=== PATIENT | female | born 1950 | race Two or more races ===

== ENCOUNTER 2024-07-28 19:27 | Inpatient (IN) | payer MEDICARE, OTHER ==
[~2024-07-28] VITALS: Ht 157.5 cm; Wt 52.2 kg
[2024-07-28] MEDS ORDERED: CLON-418 PO (19:42)
[2024-07-28] MEDS ORDERED: LORA0.5T48 PO (19:42)
[2024-07-28] MEDS ORDERED: LEVO50TA8 PO (19:42)
[2024-07-28] MEDS ORDERED: PRIM50TA27 PO (19:42)
[2024-07-28] MEDS ORDERED: ATOR80TA PO (19:42)
[2024-07-28] MEDS ORDERED: ONDA4TAB5 PO (19:42)
[2024-07-28] MEDS ORDERED: OLAN5TAB70 PO ×2 (19:42)
[2024-07-28] MEDS ORDERED: SULF1TAB48 PO (19:42)
[2024-07-28] MEDS ORDERED: OLANZAPINE 5 MG TABLET ONE (20:36)
[2024-07-28] MEDS ORDERED: LORAZEPAM 1 MG TABLET ONE (20:36)
[2024-07-28] MEDS: LORAZEPAM 0.5 MG TABLET PO ONE (20:38)
[2024-07-28] MEDS: OLANZAPINE 5 MG TABLET PO ONE (20:38)
[2024-07-28] MEDS ORDERED: QUETIAPINE FUMARATE 25 MG TABLET ONE (21:20)
[2024-07-28] MEDS: QUETIAPINE FUMARATE 25 MG TABLET PO ONE (21:21)
[2024-07-28] MEDS ORDERED: LORAZEPAM 0.5 MG TABLET PO PRN (22:15)
[2024-07-28] MEDS ORDERED: MAG HYDROX/AL HYDROX/SIMETH 30 ML LIQUID UDC PO PRN (22:15)
[2024-07-28] MEDS ORDERED: TEMAZEPAM 7.5 MG CAPSULE PO PRN (22:15)
[2024-07-28] MEDS ORDERED: MAGNESIUM HYDROXIDE 30 ML LIQUID UDC PO PRN (22:15)
[2024-07-28 22:30] VITALS: BP 114/53; TEMP 98.1; O2SAT 92
[2024-07-29 08:02] VITALS: BP 128/61; TEMP 98.3; O2SAT 96
[2024-07-29] MEDS: LEVOTHYROXINE SODIUM 50 MCG TABLET PO SCH ×2 (09:00→09:30)
[2024-07-29] MEDS ORDERED: OLAN5TAB PO (09:16)
[2024-07-29] MEDS ORDERED: ACET325T53 PO (09:21)
[2024-07-29] MEDS: PRIMIDONE 50 MG TABLET PO SCH (11:15)
[2024-07-29] MEDS: DIVALPROEX 125 MG TABLET.DR PO SCH (13:45)
[2024-07-29 16:44] VITALS: BP 122/68; TEMP 98.1; O2SAT 98
[2024-07-29 20:00] VITALS: BP 138/64; TEMP 98.8; O2SAT 93
[2024-07-29] MEDS: QUETIAPINE FUMARATE 25 MG TABLET PO SCH (20:51)
[2024-07-29] MEDS: ATORVASTATIN 40 MG TABLET PO SCH (20:51)
[2024-07-30 08:02] VITALS: BP 129/59; TEMP 98.2; O2SAT 96
[2024-07-30] MEDS: ENSURE ENLIVE (VAN) 240 ML LIQUID PO SCH (09:00)
[2024-07-30 14:34] LABS: THYROID STIMULATING HORMONE 2.957 mIU/mL (0.358-3.740)
[2024-07-30 16:53] VITALS: BP 134/65; TEMP 97.5; O2SAT 97
[2024-07-30 20:00] VITALS: BP 148/65; TEMP 98.5; O2SAT 98
[2024-07-30] MEDS: QUETIAPINE FUMARATE 25 MG TABLET PO SCH (21:11)
[2024-07-31 08:02] VITALS: BP 145/54; TEMP 98.5; O2SAT 96
[2024-07-31 16:30] VITALS: BP 148/69; TEMP 97.9; O2SAT 96
[2024-07-31 21:57] VITALS: BP 172/80; TEMP 98.8; O2SAT 96
[2024-07-31] MEDS: LOSARTAN POTASSIUM 50 MG TABLET PO SCH (22:45)
[2024-07-31 23:45] VITALS: BP 146/78
[2024-08-01 07:30] VITALS: BP 153/64; TEMP 98.7; O2SAT 94
[2024-08-01 16:30] VITALS: BP 143/55; TEMP 99.4; O2SAT 95
[2024-08-01 19:52] VITALS: BP 182/81; TEMP 97.8; O2SAT 95
[2024-08-01 21:30] VITALS: BP 142/78
[2024-08-01] MEDS: METOPROLOL TARTRATE 25 MG TABLET PO SCH (22:44)
[2024-08-02] MEDS: TEMAZEPAM 7.5 MG CAPSULE PO PRN (00:49)
[2024-08-02 07:42] VITALS: BP 150/63; TEMP 98; O2SAT 98
[2024-08-02 15:06] VITALS: BP 117/65; TEMP 98; O2SAT 94
[2024-08-02 20:00] VITALS: BP 142/69; TEMP 98.9; O2SAT 96
[2024-08-03 07:49] LABS: BASOPHILS % (AUTO) 0.4 % (0.0-2.0); HEMATOCRIT 42.7 % (31.2-41.9); HEMOGLOBIN 13.9 g/dL (10.9-14.3); LYMPHOCYTES # (AUTO) 1.3 K/uL (0.8-4.8); LYMPHOCYTES % (AUTO) 14.7 % (20.5-51.5); MEAN CORPUSCULAR HEMOGLOBIN 27.6 uug (24.7-32.8); MEAN CORPUSCULAR HGB CONC 33 g/dL (32.3-35.6); MEAN CORPUSCULAR VOLUME 84.7 fL (75.5-95.3); MONOCYTES # (AUTO) 0.5 K/uL (0.1-1.30); MONOCYTES % (AUTO) 5.5 % (0.0-11.0); NEUTROPHILS # (AUTO) 6.8 K/uL (1.8-8.9); NEUTROPHILS % (AUTO) 79.4 % (38.5-71.5); PLATELET COUNT (AUTO) 269 K/uL (179-408); RED BLOOD CELL COUNT(AUTO) 5.04 MIL/uL (3.63-4.92); RED CELL DISTRIBUTION WIDTH 13.6 % (12.3-17.7); WHITE BLOOD COUNT (AUTO) 8.6 K/uL (3.8-11.8)
[2024-08-03 07:54] VITALS: BP 146/49; TEMP 98.2; O2SAT 96
[2024-08-03 07:54] LABS: DIFFERENTIAL COMMENT 1
[2024-08-03 08:03] LABS: ALANINE AMINOTRANSFERASE 21 U/L (14-59); ALBUMIN 3.3 g/dL (3.4-5.0); ALKALINE PHOSPHATASE 115 U/L (50-136); ASPARTATE AMINOTRANSFERASE 19 U/L (15-37); BILIRUBIN,TOTAL 0.3 mg/dL (0.2-1.0); CALCIUM 9.3 mg/dL (8.5-10.1); CARBON DIOXIDE 27 mmol/L (21-32); CHLORIDE 99 mmol/L (98-107); CREATININE 0.7 mg/dL (0.6-1.3); GLUCOSE 119 mg/dL (74-106); POTASSIUM 3.9 mmol/L (3.5-5.1); SODIUM SERUM 135 mmol/L (136-145); TOTAL PROTEIN, SERUM 6.9 g/dL (6.4-8.2); UREA NITROGEN, BLOOD 19 mg/dL (7-18); VALPROIC ACID 31 ug/mL (50-100)
[2024-08-03] MEDS: ACETAMINOPHEN 325 MG TABLET PO PRN (15:01)
[2024-08-03 15:23] VITALS: BP 193/80; TEMP 98.2; O2SAT 96
[2024-08-03] MEDS: METOPROLOL TARTRATE 25 MG TABLET PO STA (15:23)
[2024-08-03 16:27] VITALS: BP 147/76; TEMP 97.5; O2SAT 98
[2024-08-03 20:00] VITALS: BP 147/72; TEMP 97.9; O2SAT 95
[2024-08-04] MEDS: LOSARTAN POTASSIUM 25 MG TABLET PO SCH (00:01)
[2024-08-04 08:10] VITALS: BP 152/73; TEMP 98.4; O2SAT 96
[2024-08-04] MEDS: QUETIAPINE FUMARATE 25 MG TABLET PO SCH (12:06)
[2024-08-04] MEDS ORDERED: DIVALPROEX 125 MG TABLET.DR PO SCH (13:00)
[2024-08-04 15:14] VITALS: BP 154/65; TEMP 98; O2SAT 96
[2024-08-04 19:56] VITALS: BP 148/66; TEMP 98.1; O2SAT 96
[2024-08-05 08:48] VITALS: BP 138/61; TEMP 97.9; O2SAT 95
[2024-08-05 16:34] VITALS: BP 125/55; TEMP 98.1; O2SAT 97
[2024-08-05 20:00] VITALS: TEMP 98.1; O2SAT 96
[2024-08-06 00:25] VITALS: BP 151/64
[2024-08-06 08:17] VITALS: BP 145/54; TEMP 97.5; O2SAT 97
[2024-08-06 16:29] VITALS: BP 157/70; TEMP 98; O2SAT 98
[2024-08-06 19:48] VITALS: BP 146/72; TEMP 98.1; O2SAT 98
[2024-08-06] MEDS: LORAZEPAM 0.5 MG TABLET PO PRN (23:37)
[2024-08-07 08:02] VITALS: BP 135/61; TEMP 97.8; O2SAT 98
[2024-08-07 16:21] VITALS: BP 134/60; TEMP 97.6; O2SAT 98
[2024-08-07 19:52] VITALS: BP 125/68; TEMP 98.1; O2SAT 96
[2024-08-08 07:49] VITALS: BP 120/70; TEMP 97.6; O2SAT 97
[2024-08-08 16:32] VITALS: BP 131/66; TEMP 97.4; O2SAT 97
[2024-08-08 19:47] VITALS: BP 191/66; TEMP 98; O2SAT 95
[2024-08-08 21:30] VITALS: BP 146/62; O2SAT 95
[2024-08-08] MEDS ORDERED: hydrALAZINE HCL 25 MG TABLET PO PRN (22:00)
[2024-08-09 08:10] VITALS: BP 147/64; TEMP 98.2; O2SAT 96
[2024-08-09 08:50] VITALS: BP 147/64
[2024-08-09] MEDS: LOSARTAN POTASSIUM 50 MG TABLET PO SCH (08:50)
== END 2024-08-09 12:05 | DRG 885 ==
LOC: ER 19:27 → GPS 21:59
PROVIDERS: ADMIT Psychiatry & Neurology Psychosomatic Medicine; ATTEND Nurse Practitioner Acute Care
DX: F29 Unspecified psychosis not due to a substance or known physiological condition (principal); F02.83 Dementia in other diseases classified elsewhere, unspecified severity, with mood disturbance; F02.811 Dementia in other diseases classified elsewhere, unspecified severity, with agitation; G20.A1 Parkinson's disease without dyskinesia, without mention of fluctuations; E03.9 Hypothyroidism, unspecified; E78.5 Hyperlipidemia, unspecified; I10 Essential (primary) hypertension; H81.12 Benign paroxysmal vertigo, left ear; Z91.013 Allergy to seafood; Z88.0 Allergy status to penicillin; Z91.011 Allergy to milk products; Z79.890 Hormone replacement therapy
CPT/HCPCS: 36415; 70450; 80164; 83921; 84443; 85025; 93005